=== PATIENT | male | born 1955 | race Caucasian/White ===

== ENCOUNTER 2020-11-14 10:45 | Day surgery (SDC) | payer MEDICARE, OTHER ==
--- NOTE | 2020-11-14 10:43 | PCM.PREANE ---
Preanesthetic Assessment - Anesthesia/Transfusion/Family Hx Anesthesia History: Prior Anesthesia Without Reaction Family History of Anesthesia Reaction: No Transfusion History: No Prior Transfusion(s) - Review of Systems General: No Symptoms Pulmonary: No Symptoms Cardiovascular: No Symptoms Gastrointestinal: No Symptoms Neurological: No Symptoms Other: Reports: None - Physical Assessment NPO Status Date: 11/14/20 NPO Status Time: 00:00 Height: 5 ft 6 in Weight: 182 lb ASA Class: 1 Mental Status: Alert & Oriented x3 Airway Class: Mallampati = 2 Dentition: Reports: Normal Dentition Thyro-Mental Finger Breadths: 3 Mouth Opening Finger Breadths: 3 ROM/Head Extension: Full Lungs: Clear to Auscultation, Normal Respiratory Effort Cardiovascular: Regular Rate, Regular Rhythm - Allergies Allergies/Adverse Reactions: Allergies Allergy/AdvReac Type Severity Reaction Status Date / Time No Known Allergies Allergy Verified 11/08/20 08:49 - Acknowledgements Anesthesia Type Planned: General Anesthesia Pt an Appropriate Candidate for the Planned Anesthesia: Yes Alternatives and Risks of Anesthesia Discussed w Pt/Guardian: Yes Pt/Guardian Understands and Agrees with Anesthesia Plan: Yes PreAnesthesia Questionnaire HEENT History: Reports: Hard of Hearing Other HEENT History: jocelynn hearing aids Cardiovascular History: Reports: None Respiratory History: Reports: None Gastrointestinal History: Reports: GERD Genitourinary History: Reports: None Musculoskeletal History: Reports: Other (See Below) Other Musculoskeletal History: hx of fall & cracked vertebrae Neurological History: Reports: None Psychiatric History: Reports: None Endocrine/Metabolic History: Reports: None Hematologic History: Reports: None Immunologic History: Reports: None Oncologic (Cancer) History: Reports: None Dermatologic History: Reports: None - Past Surgical History Head Surgeries/Procedures: Reports: None HEENT Surgical History: Reports: None Cardiovascular Surgical History: Reports: None Respiratory Surgical History: Reports: None GI Surgical History: Reports: Appendectomy Male Surgical History: Reports: None Endocrine Surgical History: Reports: None Neurological Surgical History: Reports: None Musculoskeletal Surgical History: Reports: None Oncologic Surgical History: Reports: None Dermatological Surgical History: Reports: None - SUBSTANCE USE Tobacco Use Within Last Twelve Months: Smokeless Tobacco Days Per Week of Alcohol Use: 7 Number of Drinks Per Day: 2 Total Drinks Per Week: 14 Recreational Drug Use History: No - HOME MEDS Home Medications: Home Meds Calcium Carbonate/Simethicone [Eufemia-[place] Heartburn+Gas] 1 tab.chew CHEW ASDIRECTED PRN 11/08/20 [History] - CURRENT (IN HOUSE) MEDS Current Meds: Current Medications Lactated Ringer's (Ringers, Lactated) 1,000 mls @ 125 mls/hr IV ASDIRECTED PING Discontinued Medications Propofol (Diprivan 50 Ml) Confirm Administered Dose 50 mls @ as directed .ROUTE .STK-MED ONE Stop: 11/14/20 10:02
[~2020-11-14 10:45] MED LIST: Lactated Ringers 1,000 ML IV SCH; propofoL 50 ML ONE
[2020-11-14] MEDS ORDERED: Lidocaine 2% 5 ML SDV ONE (11:55)
--- NOTE | 2020-11-14 12:20 | PCM.OPNOTE ---
- General Post-Op/Procedure Note Date of Surgery/Procedure: 11/14/20 Operative Procedure(s): colonoscopy and polypectomy Findings: colon polyp at 55 cm dictation number [id number] Pre Op Diagnosis: Family history of colon polyps Post-Op Diagnosis: Colon polyp Primary Surgeon: Mino Herrmann Pathology: colon polyp Complications: None Condition: Good
--- NOTE | 2020-11-14 12:21 | PCM.POSTAN ---
POST ANESTHESIA ASSESSMENT - MENTAL STATUS Mental Status: Alert, Oriented - VITAL SIGNS Vital Signs: Last Vital Signs Temp 97.0 F 11/14/20 10:55 Pulse 83 11/14/20 10:55 Resp 16 11/14/20 10:55 BP 142/93 H 11/14/20 10:55 Pulse Ox 98 11/14/20 10:55 - RESPIRATORY Respiratory Status: Respiratory Rate WNL, Airway Patent, O2 Saturation Stable - CARDIOVASCULAR CV Status: Pulse Rate WNL, Blood Pressure Stable - GASTROINTESTINAL GI Status: No Symptoms - POST OP HYDRATION Hydration Status: Adequate & Stable
--- NOTE | 2020-11-14 12:21 | PCM48HPAN ---
Post Anesthesia Note - EVALUATION WITHIN 48HRS OF ANESTHETIC Vital Signs in Normal Range: Yes Patient Participated in Evaluation: Yes Respiratory Function Stable: Yes Airway Patent: Yes Cardiovascular Function Stable: Yes Hydration Status Stable: Yes Pain Control Satisfactory: Yes Nausea and Vomiting Control Satisfactory: Yes Mental Status Recovered: Yes Vital Signs: Last Vital Signs Temp 97.0 F 11/14/20 10:55 Pulse 83 11/14/20 10:55 Resp 16 11/14/20 10:55 BP 142/93 H 11/14/20 10:55 Pulse Ox 98 11/14/20 10:55
--- NOTE | 2020-11-14 15:57 | OR ---
SURGEON: LUIS ALCANTARA MD DATE OF PROCEDURE: 11/14/2020 PREOPERATIVE DIAGNOSIS: Family history of colon cancer. POSTOPERATIVE DIAGNOSIS: Colon polyp at 55 cm. BOWEL PREP: Excellent. LIMITATIONS: None. PRIMARY SURGEON: Luis Alcantara MD ANESTHESIA: With the anesthesiologist. EXTENT OF THE COLONOSCOPY: To the cecum. REASON FOR COLONOSCOPY: The patient is a pleasant 65-year-old gentleman. This will be his first colonoscopy. He denies any blood in his stool. His sister was at age 64 when she developed colon cancer. PROCEDURE IN DETAIL: Physical exam was performed. The major risks and benefits associated with the procedure were explained to the patient in detail. The patient verbalized understanding and was in agreement with the same. The patient was then connected to the appropriate monitoring devices, and IV was started. EKG, pulse oximetry, blood pressure, and capnography were monitored throughout the entire procedure. Continuous oxygen and sedation were provided by the anesthesiologist. The patient was placed in left lateral decubitus position. Sedation was began. After adequate sedation was achieved, a digital rectal exam was performed. No rectal masses or polyps were felt. Now, a well-lubricated Olympus colonoscope was inserted into the rectum and advanced under direct visualization to the level of the cecum. Cecum was identified by both visual and anatomic landmarks. Photographs were taken of the cecal cap. Scope was then slowly withdrawn in a circular fashion looking at the color, texture, anatomy, and integrity of mucosa from the cecum to the anal canal. The patient did have some light liquid stool. This was suctioned and irrigated out to get an excellent look at the mucosa. The patient had a polyp at about 55 cm. This was removed with hot snare polypectomy. The mucosal edges were brought back together with a Resolution clip. The scope was retroflexed in the rectum. Scope was completely removed and the procedure was terminated. ENDOSCOPIC DIAGNOSIS: Polyp at 55 cm. RECOMMENDATIONS: Followup colonoscopy will depend on pathology but most likely will need another one in five years; sooner if he develops signs and symptoms such as change in bowel habits or blood in his stool. JACQUELINE / MIKAYLA /[id number]
== END 2020-11-14 12:50 | disposition home or self-care (01) ==
LOC: MW.SDS 10:45
PROVIDERS: ATTEND Surgery
DX: Z12.11 Encounter for screening for malignant neoplasm of colon (principal); D12.6 Benign neoplasm of colon, unspecified; F17.220 Nicotine dependence, chewing tobacco, uncomplicated; K21.9 Gastro-esophageal reflux disease without esophagitis; Z90.49 Acquired absence of other specified parts of digestive tract; Z80.0 Family history of malignant neoplasm of digestive organs
CPT/HCPCS: 45385; J2704; J7120; 00812; 88305

== ENCOUNTER 2022-07-01 23:12 | Emergency (ER) | payer MEDICARE, OTHER ==
[2022-07-01] MEDS ORDERED: Sodium Chloride 0.9% 500 ML IV SCH (23:30)
[2022-07-01] MEDS ORDERED: Sodium Chloride 0.9% 2.5 ML Syringe FLUSH PRN (23:30)
[2022-07-01] MEDS ORDERED: Sodium Chloride 0.9% 10 ML Syringe FLUSH PRN (23:30)
[2022-07-01] MEDS ORDERED: Aspirin 81 MG Tab.Chew PO ONE (23:31)
[2022-07-01] MEDS ORDERED: Aspirin 81 MG Tab.Chew ONE (23:31)
[2022-07-01] MEDS ORDERED: Heparin Sodium/0.45% NaCl 500 ML ONE (23:31)
[2022-07-01] MEDS ORDERED: Heparin Sodium 5,000 Units/ML Vial ONE (23:31)
[2022-07-01] MEDS ORDERED: Clopidogrel 75 MG Tab PO ONE (23:39)
[2022-07-01] MEDS ORDERED: Heparin Sodium 5,000 Units/ML Vial IVPUSH STA (23:42)
[2022-07-01] MEDS ORDERED: Heparin Sodium 5,000 Units/ML Vial IVPUSH ONE (23:45)
[2022-07-01] MEDS ORDERED: Tenecteplase 50 MG Kit ONE (23:45)
[2022-07-01] MEDS ORDERED: Heparin Sodium/0.45% NaCl 500 ML IV SCH ×2 (23:45)
[2022-07-01] MEDS ORDERED: Tenecteplase 50 MG Kit IV STA (23:48)
[2022-07-02 00:03] LABS: CARBON DIOXIDE,CO2 26.6 mmol/L (21.0-32.0)
== END 2022-07-02 01:22 ==
LOC: MW.ED 23:12
DX: I21.3 ST elevation (STEMI) myocardial infarction of unspecified site (principal); I95.9 Hypotension, unspecified
CPT/HCPCS: 36415; 71045; 80053; 82947; 84484; 85025; 85610; 85730; 93005; 96365; 96375; 99285; A9270; J1644; J3101; J3490; J7040; U0002; 93010; 99291

== ENCOUNTER 2023-08-28 13:41 | Day surgery (SDC) | payer MEDICARE, OTHER ==
[~2023-08-28 13:41] MED LIST changes: +Albuterol 0.083% 2.5 MG/3 ML Neb Soln NEB PRN; +HYDROmorphone 1 MG/ML Syringe IVPUSH PRN; -Lactated Ringers 1,000 ML IV SCH; +Metoclopramide 10 MG/2 ML SDV IVPUSH PRN; +Morphine 2 MG/ML SYRINGE IVPUSH PRN; +Naloxone 0.4 MG/ML SDV IVPUSH PRN; +Ondansetron 4 MG/2 ML SDV IVPUSH PRN; +droPERidol 5 MG/2 ML SDV IVPUSH PRN; +fentaNYL 50 MCG/ML SDV IVPUSH PRN; -propofoL 50 ML ONE
[2023-08-28] MEDS ORDERED: dexmedeTOMIDine HCl 200 MCG/2 ML SDV ONE (14:03)
[2023-08-28] MEDS ORDERED: fentaNYL 250 MCG/5 ML SDV ONE (14:03)
[2023-08-28] MEDS ORDERED: Propofol 200 MG/20 ML SDV ONE (14:03)
[2023-08-28] MEDS ORDERED: Ketamine HCL/NACL, ISO-OSM 50 MG/5 ML Syringe ONE (14:04)
[2023-08-28] MEDS: Lactated Ringers 1,000 ML IV SCH (14:07)
[2023-08-28] MEDS ORDERED: Bupivacaine 0.5%/EPINEPHrine 1:200,000 30 ML SDV ONE (14:09)
[2023-08-28] MEDS ORDERED: Phenylephrine HCl In 0.9% NaCl 1 MG/10 ML Syringe ONE (15:21)
[2023-08-28] MEDS ORDERED: ceFAZolin 2 GM Vial ONE (15:23)
[2023-08-28] MEDS ORDERED: Dexamethasone 4 MG/ML 5 ML MDV ONE (15:28)
[2023-08-28] MEDS ORDERED: Ondansetron 4 MG/2 ML SDV ONE (15:28)
[2023-08-28] MEDS ORDERED: ePHEDrine 50 MG/ML SDV ONE (15:29)
[2023-08-28] MEDS ORDERED: Ketorolac 30 MG/ML SDV ONE (15:37)
== END 2023-08-28 17:20 | disposition home or self-care (01) ==
LOC: MW.SDS 13:41
PROVIDERS: ATTEND Orthopaedic Surgery
DX: S82.861A Displaced Maisonneuve's fracture of right leg, initial encounter for closed fracture (principal); K21.9 Gastro-esophageal reflux disease without esophagitis; I10 Essential (primary) hypertension; E78.00 Pure hypercholesterolemia, unspecified; F17.290 Nicotine dependence, other tobacco product, uncomplicated; W19.XXXA Unspecified fall, initial encounter
CPT/HCPCS: 27829; 76000; J0131; J0690; J1100; J1885; J2371; J2405; J2704; J3010; J7120; J3490

== ENCOUNTER 2023-12-16 07:44 | Day surgery (SDC) | payer MEDICARE, OTHER ==
[2023-12-16] MEDS ORDERED: ceFAZolin 2 GM in Sodium Chloride 0.9% 50 ML IV ONE (08:00)
[2023-12-16] MEDS: Lactated Ringers 1,000 ML IV SCH (08:11)
[2023-12-16] MEDS ORDERED: propofoL 50 ML ONE (08:33)
[2023-12-16] MEDS ORDERED: dexmedeTOMIDine HCl 200 MCG/2 ML SDV ONE (08:35)
[2023-12-16] MEDS ORDERED: Water For Injection, Sterile 20 ML ONE (08:35)
[2023-12-16] MEDS ORDERED: ceFAZolin 2 GM Vial ONE (09:26)
[2023-12-16] MEDS ORDERED: fentaNYL 100 MCG/2 ML SDV ONE (09:31)
[2023-12-16] MEDS ORDERED: Bupivacaine 0.5%/EPINEPHrine 1:200,000 30 ML SDV ONE (09:31)
[2023-12-16] MEDS ORDERED: ePHEDrine 50 MG/ML SDV ONE (09:38)
== END 2023-12-16 11:16 | disposition home or self-care (01) ==
LOC: MW.SDS 07:44
PROVIDERS: ATTEND Orthopaedic Surgery
DX: T84.196A Other mechanical complication of internal fixation device of bone of right lower leg, initial encounter (principal); I10 Essential (primary) hypertension; E78.00 Pure hypercholesterolemia, unspecified; F17.290 Nicotine dependence, other tobacco product, uncomplicated; Z79.82 Long term (current) use of aspirin; Z79.899 Other long term (current) drug therapy
CPT/HCPCS: 20680; 76000; J0690; J2704; J3010; J7120; J3490

== ENCOUNTER 2024-08-05 06:30 | Day surgery (SDC) | payer MEDICARE, OTHER ==
[2024-08-05] MEDS: Lactated Ringers 1,000 ML IV SCH (07:00)
[2024-08-05] MEDS ORDERED: Bupivacaine 0.5% 30 ML SDV ONE (07:08)
[2024-08-05] MEDS ORDERED: ceFAZolin 1 GM Vial ONE (07:08)
[2024-08-05] MEDS ORDERED: Propofol 200 MG/20 ML SDV ONE (07:44)
[2024-08-05] MEDS ORDERED: fentaNYL 100 MCG/2 ML SDV ONE (07:44)
[2024-08-05] MEDS ORDERED: Midazolam 1 MG/ML 2 ML SDV ONE (07:44)
[2024-08-05] MEDS ORDERED: Lidocaine 2% 5 ML SDV ONE (07:46)
[2024-08-05] MEDS ORDERED: Rocuronium Bromide 50 MG/5 ML Syringe ONE (07:52)
[2024-08-05] MEDS ORDERED: Ondansetron 4 MG/2 ML SDV IVPUSH PRN (08:06)
[2024-08-05] MEDS ORDERED: Albuterol 0.083% 2.5 MG/3 ML Neb Soln NEB PRN (08:06)
[2024-08-05] MEDS ORDERED: Naloxone 0.4 MG/ML SDV IVPUSH PRN (08:06)
[2024-08-05] MEDS ORDERED: Metoclopramide 10 MG/2 ML SDV IVPUSH PRN (08:06)
[2024-08-05] MEDS ORDERED: Phenylephrine HCl In 0.9% NaCl 1 MG/10 ML Syringe IVPUSH PRN (08:06)
[2024-08-05] MEDS ORDERED: Morphine 2 MG/ML SYRINGE IVPUSH PRN (08:06)
[2024-08-05] MEDS ORDERED: ePHEDrine 50 MG/ML SDV ONE (08:15)
[2024-08-05] MEDS ORDERED: Dexamethasone 4 MG/ML 5 ML MDV ONE (08:19)
[2024-08-05] MEDS ORDERED: Ondansetron 4 MG/2 ML SDV ONE (08:19)
[2024-08-05] MEDS ORDERED: ceFAZolin 2 GM Vial ONE (08:20)
[2024-08-05] MEDS ORDERED: Sugammadex Sodium 200 MG/2 ML VIAL IV ONE (08:48)
[2024-08-05] MEDS ORDERED: Ketorolac 30 MG/ML SDV ONE (08:48)
[2024-08-05] MEDS ORDERED: Acetaminophen/HYDROcodone 325-5 MG Tab PO PRN (09:03)
[2024-08-05] MEDS: fentaNYL 50 MCG/ML SDV IVPUSH PRN (09:13)
[2024-08-05] MEDS ORDERED: Lactated Ringers 1,000 ML IV SCH (09:15)
[2024-08-05] MEDS: HYDROmorphone 1 MG/ML Syringe IVPUSH PRN (09:25)
== END 2024-08-05 11:10 | disposition home or self-care (01) ==
LOC: MW.SDS 06:30
PROVIDERS: ATTEND Surgery
DX: L72.0 Epidermal cyst (principal); I11.0 Hypertensive heart disease with heart failure; I50.30 Unspecified diastolic (congestive) heart failure; E78.00 Pure hypercholesterolemia, unspecified; F17.220 Nicotine dependence, chewing tobacco, uncomplicated; F17.290 Nicotine dependence, other tobacco product, uncomplicated; Z79.82 Long term (current) use of aspirin; Z79.899 Other long term (current) drug therapy
CPT/HCPCS: 10061; 87070; 87075; 87205; 88304; J0665; J1100; J1171; J1885; J2003; J2250; J2405; J2704; J3010; J7120; 00300; 99100; J0690; J3490